=== PATIENT | male | born 1955 | race Caucasian/White ===

== ENCOUNTER 2018-02-05 15:04 | Emergency (ER) | payer BC ==
--- NOTE | 2018-02-05 16:06 | EDM.PDOC ---
<Bonnie Lara - Last Filed: 02/05/18 16:00> ED HPI GENERAL MEDICAL PROBLEM - General Chief Complaint: ENT Problem Stated Complaint: POSS BROKEN NOSE Time Seen by Provider: 02/05/18 15:30 Source of Information: Reports: Patient History Limitations: Reports: No Limitations - History of Present Illness INITIAL COMMENTS - FREE TEXT/NARRATIVE: Patient is a 62 YO male who presents today after getting hit in the face by a cattle gate. He states the gate hit him across the nose which resulted in a bloody nose. He states it only bleed for about 3-5 minutes. He denies the feeling of blood running down the back of his throat. He does admit to a mild headache rates 3/10 across the forehead. He denies pain in the mouth or any loose teeth. She denies vision changes. He denies nausea or vomiting. - Related Data Allergies Allergy/AdvReac Type Severity Reaction Status Date / Time No Known Allergies Allergy Verified 02/05/18 15:17 Home Meds: Home Meds Levothyroxine 25 mcg PO ACBREAKFAST 02/05/18 [History] Past Medical History - Past Health History Medical/Surgical History: Denies Medical/Surgical History Social & Family History - Tobacco Use Smoking Status *Q: Never Smoker - Caffeine Use Caffeine Use: Reports: Soda, Tea - Recreational Drug Use Recreational Drug Use: No ED ROS ENT - Review of Systems Review Of Systems: See Below Constitutional: Reports: No Symptoms HEENT: Reports: Nosebleed, Nose Pain. Denies: Ear Pain, Eye Pain, Vision Change Musculoskeletal: Denies: Neck Pain Skin: Reports: No Symptoms Neurological: Reports: Headache. Denies: Confusion, Dizziness, Syncope, Weakness, Gait Disturbance Psychiatric: Reports: No Symptoms ED EXAM, ENT - Physical Exam Exam: See Below Exam Limited By: No Limitations General Appearance: Alert, WD/WN, No Apparent Distress Eye Exam: Bilateral Eye: EOMI, PERRL Nose: Nasal Deformity (nose appears to be slightly moved to the right), Nasal Tenderness, Dried Blood. No: Foreign Body, Septal Deformity, Septal Hematoma, Septal Perforation Mouth/Throat: Normal Inspection, Normal Gums, Normal Lips, Normal Teeth, Other ( Uvula absent due to surgery for sleep apnea) Head: Atraumatic, Normocephalic. No: Facial Lacerations, Facial Tenderness Neurological: Alert, Oriented, CN II-XII Intact, Normal Cognition, No Motor/ Sensory Deficits Psychiatric: Normal Affect, Normal Mood Skin: Warm, Dry, Intact, Normal Color, No Rash Course - Vital Signs Last Recorded V/S: Last Vital Signs Temp 36.2 C 02/05/18 15:15 Pulse 79 02/05/18 15:15 Resp 16 02/05/18 15:15 BP 122/90 02/05/18 15:15 Pulse Ox 96 02/05/18 15:15 Departure - Departure Disposition: Home, Self-Care 01 Clinical Impression: Nasal bone fracture - Discharge Information Instructions: Nasal Fracture, [id number] Referrals: Matt Prather MD [Primary Care Provider] - German Escamilla MD [Ordering Only Provider] - Forms: ED Department Discharge Additional Instructions: [id number] Tylenol or Motrin as needed for pain. Ice the nose frequently, 4 or 5 times a day for 10-15 minutes. Follow-up with ear, nose and throat early next week in [place]. Recommend Dr. Escamilla. Call [phone] to schedule with him. Or Dr. Black. Call to schedule with him. Please let them know that you have a nasal bone fracture as well as your septum is fractured. Please bring the disc with you to your follow-up appointment. Please return to the ER if your symptoms change or worsen. <Michelle Byrd - Last Filed: 02/06/18 19:14> ED HPI GENERAL MEDICAL PROBLEM - History of Present Illness INITIAL COMMENTS - FREE TEXT/NARRATIVE: I have seen the patient and agree with the HPI as documented by TAWNY Robles. Course - Radiology Interpretation Free Text/Narrative:: CT facial bones Technique: Multiple axial sections through the facial bones were obtained. Reconstructed coronal and sagittal images were reviewed. Comparison: No prior facial bone study. Findings: Minimal mucosal thickening which appears slightly nodular is seen within the inferior right maxillary sinus. Minimal retention cyst may be superimposed. Sinuses otherwise are clear. No air-fluid levels are seen. Mild nasal septal deviation is seen. Minimally displaced nasal bone fracture is seen. Nasal septum also appears to be fractured. Soft tissue air air is noted within the nose compatible with soft tissue injury. Anterior nasal spine appears intact. No additional facial bone fracture is appreciated. Impression: 1. Nasal bone fracture with minimal displacement as well as fracture within the anterior nasal septum. 2. Minimal sinus findings. Soft tissue air compatible with soft tissue injury within the nose. 3. No additional fracture is appreciated. - Re-Assessments/Exams Free Text/Narrative Re-Assessment/Exam: 02/05/18 17:[address] results with the patient. I have seen the patient and agree with the HPI, ROs and PE as documented by TAWNY Robles. Will have the patient follow-up with ENT. CD of the CT given. Discharge instructions as documented. Departure - Departure Time of Disposition: 17:11 Condition: Fair
--- NOTE | 2018-02-05 18:36 | CT ---
CT facial bones Technique: Multiple axial sections through the facial bones were obtained. Reconstructed coronal and sagittal images were reviewed. Comparison: No prior facial bone study. Findings: Minimal mucosal thickening which appears slightly nodular is seen within the inferior right maxillary sinus. Minimal retention cyst may be superimposed. Sinuses otherwise are clear. No air-fluid levels are seen. Mild nasal septal deviation is seen. Minimally displaced nasal bone fracture is seen. Nasal septum also appears to be fractured. Soft tissue air air is noted within the nose compatible with soft tissue injury. Anterior nasal spine appears intact. No additional facial bone fracture is appreciated. Impression: 1. Nasal bone fracture with minimal displacement as well as fracture within the anterior nasal septum. 2. Minimal sinus findings. Soft tissue air compatible with soft tissue injury within the nose. 3. No additional fracture is appreciated. Diagnostic code #3 I agree with preliminary report from [facility], finalized at 02/05/18, 4:59 PM Central Time
== END 2018-02-05 17:35 | disposition home or self-care (01) ==
LOC: JD.ED 15:04
DX: S02.2XXA Fracture of nasal bones, initial encounter for closed fracture (principal); W22.8XXA Striking against or struck by other objects, initial encounter
CPT/HCPCS: 70486; 70486-26; 99284-25